=== PATIENT | male | born 1945 | race Caucasian/White ===

== ENCOUNTER → 2018-05-17 | Outpatient (CLI) | payer MEDICARE ==
[~2018-05-17] MED LIST: OMNIPAQUE 350 MG/ML, 100ML BOTTLE ONE
[2018-05-17 09:34] LABS: CREATININE 1.35 mg/dL (0.7-1.3)
== END | disposition home or self-care (01) ==
LOC: RAD 08:51
PROVIDERS: ATTEND Urology
DX: D17.71 Benign lipomatous neoplasm of kidney (principal)
CPT/HCPCS: 36415; 74170; 82565; Q9967

== ENCOUNTER 2018-07-04 13:03 | Day surgery (SDC) | payer MEDICARE ==
[~2018-07-04] VITALS: Ht 177.8 cm; Wt 111.8 kg
[~2018-07-04 13:03] MED LIST changes: +FENTANYL PF 100 MCG/2ML ONE; +MIDAZOLAM 1 MG/ML, 2ML ONE; -OMNIPAQUE 350 MG/ML, 100ML BOTTLE ONE
[2018-07-04] MEDS ORDERED: CEFAZOLIN 1,000 MG IM STA (13:25)
[2018-07-04] MEDS ORDERED: PLEASE ENTER HEIGHT AND WEIGHT MC SCH (14:00)
[2018-07-04] MEDS ORDERED: PLEASE ENTER ALLERGIES MC SCH (14:00)
[2018-07-04 14:11] VITALS: BP 139/87
[2018-07-04] MEDS ORDERED: LOVASTATIN (14:18)
[2018-07-04] MEDS ORDERED: DILTIAZEM (14:18)
[2018-07-04] MEDS ORDERED: BENA20TA4 PO (14:18)
[2018-07-04] MEDS ORDERED: SILD20TA PO (14:18)
[2018-07-04] MEDS ORDERED: TAMS0.4C2 PO (14:18)
[2018-07-04] MEDS ORDERED: FINASTERIDE (14:18)
[2018-07-04] MEDS ORDERED: TRIAMTERENE (14:18)
[2018-07-04] MEDS ORDERED: CEFAZOLIN PMX 1GM/50ML 50 ML ONE (14:54)
[2018-07-04] MEDS ORDERED: LIDOCAINE-MPF 1%, 5ML ONE (15:02)
[2018-07-04] MEDS ORDERED: CEFAZOLIN PMX 1GM/50ML 50 ML IV STA (15:09)
[2018-07-04 15:12] LABS: BASOPHILS # (AUTO) 0.07 x10^3/uL (0-0.1); BASOPHILS % (AUTO) 1 % (0-1); EOSINOPHILS # (AUTO) 0.18 x10^3/uL (0-0.4); EOSINOPHILS % (AUTO) 2 % (1-7); LYMPHOCYTES # (AUTO) 1.86 x10^3/uL (1-3.4); LYMPHOCYTES % (AUTO) 20 % (22-44); MD NO; MEAN CORPUSCULAR HEMOGLOBIN 28.5 pg (27.5-34.5); MEAN CORPUSCULAR HGB CONC 32.5 g/dL (33.2-36.2); MEAN CORPUSCULAR VOLUME 87.7 fL (81-97); MEAN PLATELET VOLUME 9.5 fL (7.4-10.4); MONOCYTES % (AUTO) 8 % (2-9); NEUTROPHILS # (AUTO) 6.46 x10^3/uL (1.8-6.8); NEUTROPHILS % (AUTO) 70 % (42-75); PLATELET COUNT 203 x10^3/uL (130-400); RED BLOOD COUNT 6.05 x10^6/uL (4.38-5.82); RED CELL DISTRIBUTION WIDTH 14.2 % (9.4-14.8)
[2018-07-04 15:22] LABS: INTERNATIONAL NORMALIZED RATIO 1.04 (0.93-1.1)
[2018-07-04] MEDS ORDERED: VASOPRESSIN 20 UNIT/ML, 1ML ONE (15:27)
[2018-07-04] MEDS ORDERED: SUCCINYLCHOLINE 20 MG/ML, 10ML ONE (15:27)
[2018-07-04] MEDS ORDERED: PROPOFOL 10 MG/ML, 20ML ONE (15:27)
[2018-07-04] MEDS ORDERED: ALBUTEROL SULFATE 200 PUFFS/8.5 GR INH ONE (15:27)
[2018-07-04] MEDS ORDERED: CEFAZOLIN PMX 1GM/50ML 50 ML IV ONE (15:30)
[2018-07-04 15:34] LABS: MICROSCOPIC NOT IND
[2018-07-04 15:51] LABS: CULTURE INDICATED? NO
[2018-07-04] MEDS ORDERED: FENTANYL PF 250 MCG/5ML ONE (16:06)
[2018-07-04] MEDS ORDERED: PROMETHAZINE 12.5 MG SUPP PR PRN (17:00)
[2018-07-04] MEDS ORDERED: MORPHINE SULFATE 4 MG/ML, 1ML IVPush PRN (17:00)
[2018-07-04] MEDS ORDERED: HYDROmorphone 1 MG/ML, 1ML IV PRN (17:00)
[2018-07-04] MEDS ORDERED: MIDAZOLAM 1 MG/ML, 2ML IV PRN (17:00)
[2018-07-04] MEDS ORDERED: ACETAMINOPHEN 325 MG TABLET PO PRN (17:00)
[2018-07-04] MEDS ORDERED: PROMETHAZINE 25 MG/ML, 1ML IV PRN (17:00)
[2018-07-04] MEDS ORDERED: MEPERIDINE/PF 25MG/0.5ML IVPush PRN (17:00)
[2018-07-04] MEDS ORDERED: ALBUTEROL SULFATE 2.5 MG/3 ML NPPB PRN (17:00)
[2018-07-04] MEDS ORDERED: ONDANSETRON ODT 8 MG PO PRN (17:00)
[2018-07-04] MEDS ORDERED: LABETALOL 5MG/ML, 20ML IV PRN (17:00)
[2018-07-04] MEDS ORDERED: FENTANYL PF 100 MCG/2ML IV PRN (17:00)
[2018-07-04] MEDS ORDERED: ONDANSETRON 2MG/ML, 2ML IV PRN (17:00)
[2018-07-04] MEDS ORDERED: EPHEDRINE 50 MG/ML, 1ML IVPush PRN (17:00)
[2018-07-04] MEDS ORDERED: OXYcodone 5 MG/5 ML ORAL.SOL UDC PO PRN (17:00)
[2018-07-04] MEDS ORDERED: HALOPERIDOL 5 MG/ML IV PRN (17:00)
[2018-07-04] MEDS ORDERED: hydrALAzine 20 MG/ML, 1ML IV PRN (17:00)
== END 2018-07-04 18:40 | disposition home or self-care (01) ==
LOC: OUT 13:03 → EDSTATUS 14:30 → OUT 18:40
PROVIDERS: ATTEND Urology
DX: N28.89 Other specified disorders of kidney and ureter (principal); E78.00 Pure hypercholesterolemia, unspecified; I10 Essential (primary) hypertension; N40.0 Benign prostatic hyperplasia without lower urinary tract symptoms; J44.9 Chronic obstructive pulmonary disease, unspecified; E66.9 Obesity, unspecified; Z68.35 Body mass index [BMI] 35.0-35.9, adult; Z72.89 Other problems related to lifestyle; Z87.891 Personal history of nicotine dependence; Z79.899 Other long term (current) drug therapy
CPT/HCPCS: 36415; 50593; 74150; 77013; 81003; 85025; 85610; 85730; 93005; 94640; J0330; J0690; J2250; J2704; J3010; J7613